=== PATIENT | male | born 1990 ===

== ENCOUNTER 2020-06-25 05:19 | Emergency (ER) | payer BC ==
[2020-06-25] MEDS ORDERED: Meclizine 12.5 MG Tab PO ONE (05:39)
[2020-06-25] MEDS ORDERED: Ondansetron 4 MG Tab.DIS PO ONE (05:39)
--- NOTE | 2020-06-25 05:43 | EDM.PDOC ---
ED HPI GENERAL MEDICAL PROBLEM - General Chief Complaint: General Stated Complaint: carbon monoxide poisoning Time Seen by Provider: 06/25/20 05:35 Source of Information: Reports: Patient History Limitations: Reports: No Limitations - History of Present Illness INITIAL COMMENTS - FREE TEXT/NARRATIVE: woke up hour ago feeling dizzy room spinning sensation and nausea. thinks had monoxide poisoning. been sleeping in ice house but heating is forced furnace propane and not a portable type. did have a drink earlier. denies CP/SOB. denies ear pain/sinus congestion. - Related Data Allergies Allergy/AdvReac Type Severity Reaction Status Date / Time No Known Allergies Allergy Verified 06/25/20 05:32 Home Meds: Home Meds Pantoprazole Sodium [Protonix] 20 mg PO DAILY 06/25/20 [History] ED ROS GENERAL - Review of Systems Review Of Systems: Comprehensive ROS is negative, except as noted in HPI. ED EXAM, GENERAL - Physical Exam Exam: See Below Exam Limited By: No Limitations General Appearance: Alert, WD/WN, Anxious, Mild Distress Eye Exam: Bilateral Eye: PERRL (pupils ER @ 4mm) Ears: Hearing Grossly Normal Throat/Mouth: Normal Voice, No Airway Compromise Head: Atraumatic Neck: Non-Tender, Full Range of Motion Respiratory/Chest: No Respiratory Distress Cardiovascular: Regular Rate, Rhythm GI/Abdominal: Soft, Non-Tender (Male) Exam: Deferred Rectal (Males) Exam: Deferred Back Exam: Full Range of Motion Extremities: Normal Range of Motion Neurological: Alert, Oriented, Normal Cognition, Normal Gait, No Motor/Sensory Deficits Psychiatric: Flat Affect Skin Exam: Warm, Dry, Normal Color Lymphatic: No Adenopathy Course - Vital Signs Last Recorded V/S: Last Vital Signs Temp 35.9 C L 06/25/20 05:33 Pulse 76 06/25/20 05:33 Resp 20 06/25/20 05:33 BP 122/76 06/25/20 05:33 Pulse Ox 100 06/25/20 05:33 - Orders/Labs/Meds Labs: Laboratory Tests 06/25/20 06/25/20 Range/Units 05:41 05:41 WBC 7.0 (5.0-10.0) 10^3/uL RBC 4.96 (4.6-6.2) 10^6/uL Hgb 15.8 (14.0-18.0) g/dL Hct 43.5 (40.0-54.0) % MCV 87.7 (80-100) fL MCH 31.9 (27.0-34.0) pg MCHC 36.3 H (33.0-35.0) g/dL Plt Count 205 (150-450) 10^3/uL Neut % (Auto) 40.8 L (42.2-75.2) % Lymph % (Auto) 47.1 (20.5-50.1) % Parke % (Auto) 7.5 (2-8) % Eos % (Auto) 4.3 H (1.0-3.0) % Baso % (Auto) 0.3 (0.0-1.0) % Sodium 142 (136-145) mmol/L Potassium 3.1 L (3.5-5.1) mmol/L Chloride 103 (98-107) mmol/L Carbon Dioxide 30 (21-32) mmol/L Anion Gap 12.1 (7-13) mEq/L BUN 13 (7-18) mg/dL Creatinine 0.97 (0.70-1.30) mg/dL Est Cr Clr Drug Dosing 121.11 mL/min Estimated GFR (MDRD) > 60 BUN/Creatinine Ratio 13.4 (No establ ref range) Glucose 109 H (74-99) mg/dL Calcium 8.6 (8.5-10.1) mg/dL Total Bilirubin 0.4 (0.2-1.0) mg/dL AST 21 (15-37) U/L ALT 45 (16-63) U/L Alkaline Phosphatase 79 (46-116) U/L Total Protein 6.8 (6.4-8.2) g/dL Albumin 4.3 (3.4-5.0) g/dL Globulin 2.5 Albumin/Globulin Ratio 1.7 Ethyl Alcohol < 3 (0) mg/dL Meds: Medications Discontinued Medications Generic Name Dose Route Start Last Admin Trade Name Freq PRN Reason Stop Dose Admin Meclizine HCl 12.5 mg 06/25/20 05:39 06/25/20 05:45 Antivert PO 06/25/20 05:40 12.5 mg ONETIME ONE Administration Ondansetron HCl 4 mg 06/25/20 05:39 06/25/20 05:45 Zofran Odt PO 06/25/20 05:40 4 mg ONETIME ONE Administration Promethazine HCl 25 mg 06/25/20 06:11 06/25/20 06:20 Phenergan IM 06/25/20 06:12 25 mg ONETIME ONE Administration - Re-Assessments/Exams Free Text/Narrative Re-Assessment/Exam: 06/25/20 06:12 re-exam; s/p zofran + antivert = nausea gone but still dizzy when moves head. 06/25/20 06:50 results discussed with pt who is feeling better s/p IM phenergan. Departure - Departure Time of Disposition: 06:51 Disposition: Home, Self-Care 01 Condition: Good Clinical Impression: Labyrinthitis Qualifiers: Laterality: unspecified laterality Qualified Code(s): H83.09 - Labyrinthitis, unspecified ear - Discharge Information Instructions: Labyrinthitis, [id number] Forms: ED Department Discharge Additional Instructions: 1) rest and avoid vigorous activity 2) take MECLIZINE 12.5MG TWICE TO 3 TIMES DAILY FOR DIZZINESS 3) recheck if there is any change or concern Sepsis Event Note (ED) - Evaluation Sepsis Screening Result: No Definite Risk - Focused Exam Vital Signs: Vital Signs Temp Pulse Resp BP Pulse Ox 06/25/20 05:33 35.9 C L 76 20 122/76 100
[2020-06-25 06:05] LABS: ANION GAP 12.1 mEq/L (7-13); CHLORIDE,CL 103 mmol/L (98-107); SODIUM,NA 142 mmol/L (136-145)
[2020-06-25] MEDS ORDERED: Promethazine 25 MG/ML SDV IM ONE (06:11)
== END 2020-06-25 07:00 | disposition home or self-care (01) ==
LOC: DL.ED 05:19
DX: H83.09 Labyrinthitis, unspecified ear (principal); Z79.899 Other long term (current) drug therapy
CPT/HCPCS: 36415; 80053; 80307; 85025; 96372; 99284; A9270; J2550; 99283